=== PATIENT | female | born 1945 | race Asian ===

== ENCOUNTER 2025-05-19 19:41 | Emergency (ER) | payer OTHER ==
[~2025-05-19] VITALS: Ht 165.1 cm; Wt 74.0 kg
[2025-05-19 19:46] VITALS: TEMP 36.7; O2SAT 97
[2025-05-19] MEDS: ACETAMINOPHEN 500MG TABLET PO ONE (21:44)
[2025-05-19] MEDS: LIDOCAINE 5% PATCH TOP SCH (21:49)
[2025-05-19] MEDS ORDERED: NAPR-1176 MT (22:18)
[2025-05-19] MEDS ORDERED: LIDO-53 TP (22:18)
[2025-05-19 22:47] VITALS: BP 149/88; PULSE 60; RESP 18; O2SAT 97
== END 2025-05-19 23:04 | disposition home or self-care (01) ==
LOC: ER 19:41
DX: S50.01XA Contusion of right elbow, initial encounter (principal); M25.511 Pain in right shoulder; R07.81 Pleurodynia; I10 Essential (primary) hypertension; Z79.1 Long term (current) use of non-steroidal anti-inflammatories (NSAID); Z79.899 Other long term (current) drug therapy; Z88.2 Allergy status to sulfonamides; V89.2XXA Person injured in unspecified motor-vehicle accident, traffic, initial encounter; Y93.89 Activity, other specified; Y92.89 Other specified places as the place of occurrence of the external cause; Y99.8 Other external cause status
CPT/HCPCS: 71250; 73030; 73080; 99284